=== PATIENT | male | born 1980 | race African-American/Black ===

== ENCOUNTER 2019-04-17 15:15 | Emergency (ER) | payer BC ==
[~2019-04-17] VITALS: Ht 172.7 cm; Wt 76.2 kg
[2019-04-17 17:39] VITALS: BP 138/85
== END 2019-04-17 17:39 | disposition home or self-care (01) ==
LOC: ER 15:15
DX: R22.42 Localized swelling, mass and lump, left lower limb (principal)

== ENCOUNTER 2020-05-11 08:13 | Emergency (ER) | payer BC, OTHER ==
[~2020-05-11] VITALS: Ht 167.6 cm; Wt 90.7 kg
[2020-05-11 08:33] VITALS: BP 156/90
[2020-05-11 09:25] LABS: CALCIUM 9.7 mg/dL (8.5-10.1); CREATININE 1.1 mg/dL (0.7-1.3); POTASSIUM 3.9 mmol/L (3.5-5.1)
[2020-05-11] MEDS ORDERED: NORCO 5-325 TA1 EAC2 PO (11:20)
[2020-05-11] MEDS ORDERED: AUGMENTIN 875-1 EACH PO (11:20)
[2020-05-11] MEDS ORDERED: IBUPROFEN 600600 M1 PO (11:20)
== END 2020-05-11 11:33 | disposition home or self-care (01) ==
LOC: ER 08:13
PROVIDERS: Emergency Medicine
DX: K04.7 Periapical abscess without sinus (principal); Z98.890 Other specified postprocedural states